=== PATIENT | female | born 1990 | race Two or more races ===

== ENCOUNTER 2017-05-29 10:08 | Emergency (ER) | payer MEDICAID ==
[~2017-05-29] VITALS: Ht 154.9 cm; Wt 85.7 kg
[2017-05-29 10:33] VITALS: BP 120/8
[2017-05-29] MEDS ORDERED: diphenhdrAMINE HCL 25 MG CAP PO ONE (11:00)
[2017-05-29] MEDS ORDERED: methylPREDNISolone SOD SUCC 125 MG/2 ML VL IM ONE (11:00)
== END 2017-05-29 11:42 | disposition home or self-care (01) ==
LOC: ER 10:08
DX: T78.40XA Allergy, unspecified, initial encounter (principal)
CPT/HCPCS: 96372; 99283; J2930

== ENCOUNTER 2018-01-11 12:47 | Emergency (ER) | payer MEDICAID ==
[~2018-01-11] VITALS: Ht 154.9 cm; Wt 78.9 kg
[2018-01-11 13:40] LABS: Urine WBC None Seen /hpf (0 - 5)
[2018-01-11 13:51] VITALS: BP 115/87
[2018-01-11 13:51] LABS: Basophils # (auto) 0.1 uL; Basophils % (auto) 0.5 % (0.0-2.0); Eosinophils # (auto) 0 uL; Eosinophils % (auto) 0.2 % (0.0-7.0); Hematocrit 46.9 % (36.0-46.0); Hemoglobin 16.2 g/dL (12.2-16.2); Lymphocytes # (auto) 2.7 uL; Lymphocytes % (auto) 24.8 % (10.0-50.0); Mean Corpuscular Hemoglobin 31.6 pg (28.0-32.0); Mean Corpuscular Hgb Conc. 34.6 g/dL (32.0-36.0); Mean Corpuscular Volume 91.3 fL (80.0-100.0); Monocytes # (auto) 1.2 uL; Monocytes % (auto) 11.1 % (0.0-12.0); Neutrophils % (auto) 63.4 % (37.0-80.0); Nucleated Red Blood Cells % 0.1 %; Platelet Count (auto) 259 10^3/uL (140-450); Red Blood Cells 5.13 10^6/uL (4.0-5.20); Red Cell Distribution Width 13.3 % (11.8-14.3); White Blood Cell 11.1 10^3/uL (4.4-10.8)
[2018-01-11 14:09] LABS: Albumin 4.2 g/dL (3.4-5.0); BUN/Creatinine Ratio 14.5; Bilirubin, Total 0.6 mg/dL (0.2-1.0); Calcium 9.5 mg/dL (8.5-10.1); Potassium 3.4 mmol/L (3.5-5.1); Total Protein 9.3 g/dL (6.4-8.2)
[2018-01-11 14:14] LABS: Urine Amorphous Crystal FEW /hpf (None Seen); Urine Bacteria NONE SEEN /hpf (None Seen); Urine Blood Negative /uL (Negative); Urine Mucus MODERATE (None Seen); Urine Specific Gravity 1.031 (1.001-1.035)
[2018-01-11] MEDS ORDERED: DICYCLOMINE HCL (10MG/ML) 2 ML AMPULE IM ONE (15:00)
== END 2018-01-11 15:28 | disposition home or self-care (01) ==
LOC: ER 12:48
DX: N39.0 Urinary tract infection, site not specified (principal); K76.0 Fatty (change of) liver, not elsewhere classified
CPT/HCPCS: 36415; 74176; 76705; 80053; 81001; 81025; 83690; 85025; 96372; 99285; J0500

== ENCOUNTER 2018-07-20 15:56 | Emergency (ER) | payer MEDICAID ==
[~2018-07-20] VITALS: Ht 154.9 cm; Wt 73.9 kg
[2018-07-20 19:06] VITALS: BP 135/69
[2018-07-20] MEDS ORDERED: HYDROcodone-ACET 10/325MG TAB PO ONE (19:45)
[2018-07-20] MEDS ORDERED: cefTRIAXone SOD 1,000 MG VL IM ONE (19:45)
[2018-07-20] MEDS ORDERED: LIDOCAINE 1% HCL (LOCAL ANESTH.) INJ 20ML MDV ONE (19:57)
[2018-07-20] MEDS ORDERED: LIDOCAINE 1% HCL (LOCAL ANESTH.) INJ 20ML MDV IJ ONE (20:15)
== END 2018-07-20 20:30 | disposition home or self-care (01) ==
LOC: ER 15:56
DX: S63.501A Unspecified sprain of right wrist, initial encounter (principal); S60.211A Contusion of right wrist, initial encounter; Z88.6 Allergy status to analgesic agent; Z91.040 Latex allergy status; W19.XXXA Unspecified fall, initial encounter; Y93.01 Activity, walking, marching and hiking; Y92.89 Other specified places as the place of occurrence of the external cause; Y99.8 Other external cause status
CPT/HCPCS: 29125; 73110; 81025; 96372; 99283; J0696; J2001

== ENCOUNTER 2019-01-10 12:07 | Emergency (ER) | payer MEDICAID ==
[~2019-01-10] VITALS: Ht 154.9 cm; Wt 68.9 kg
[2019-01-10 13:22] LABS: Basophils # (auto) 0 uL; Basophils % (auto) 0.4 % (0.0-2.0); Eosinophils # (auto) 0 uL; Eosinophils % (auto) 0.3 % (0.0-7.0); Hematocrit 39.9 % (36.0-46.0); Hemoglobin 13.7 g/dL (12.2-16.2); Lymphocytes # (auto) 1.9 uL; Lymphocytes % (auto) 26.8 % (10.0-50.0); Mean Corpuscular Hemoglobin 31.8 pg (28.0-32.0); Mean Corpuscular Hgb Conc. 34.2 g/dL (32.0-36.0); Mean Corpuscular Volume 93.1 fL (80.0-100.0); Monocytes # (auto) 0.4 uL; Monocytes % (auto) 6.2 % (0.0-12.0); Neutrophils # (auto) 4.7 uL; Neutrophils % (auto) 66.3 % (37.0-80.0); Nucleated Red Blood Cells % 0.1 %; Platelet Count (auto) 273 10^3/uL (140-450); Red Blood Cells 4.29 10^6/uL (4.0-5.20); Red Cell Distribution Width 12.5 % (11.8-14.3); White Blood Cell 7.1 10^3/uL (4.4-10.8)
[2019-01-10 13:26] LABS: Urine Bacteria FEW /hpf (None Seen); Urine Blood 2+ /uL (Negative); Urine Mucus FEW (None Seen); Urine Specific Gravity 1.024 (1.001-1.035); Urine WBC 45 /hpf (0 - 5)
[2019-01-10 13:39] LABS: Albumin 3.9 g/dL (3.4-5.0); BUN/Creatinine Ratio 13.3; Calcium 8.6 mg/dL (8.5-10.1); Potassium 3.4 mmol/L (3.5-5.1)
[2019-01-10 13:42] LABS: Bilirubin, Total 0.3 mg/dL (0.2-1.0); Total Protein 7.1 g/dL (6.4-8.2)
[2019-01-10 14:00] VITALS: BP 126/84
[2019-01-10] MEDS ORDERED: HYDROcodone-ACET 7.5/325MG TAB PO ONE (14:45)
== END 2019-01-10 15:09 | disposition home or self-care (01) ==
LOC: ER 12:19
DX: N93.9 Abnormal uterine and vaginal bleeding, unspecified (principal); Z91.040 Latex allergy status
CPT/HCPCS: 36415; 80053; 81001; 81025; 85025

== ENCOUNTER 2024-06-11 15:50 | Emergency (ER) | payer MEDICAID ==
[~2024-06-11] VITALS: Ht 157.5 cm; Wt 90.0 kg
[2024-06-11 16:46] VITALS: BP 130/77; PULSE 69; RESP 18; O2SAT 97
[2024-06-11] MEDS ORDERED: METOCLOPRAMIDE HCL 5MG/ml INJ 2ml VIAL IM ONE (17:30)
[2024-06-11] MEDS ORDERED: HYDROmorphone HCL 2 MG/ML VL/or syr IM ONE (17:30)
--- NOTE | 2024-06-11 17:37 | ED.PDOC ---
History of Present Illness HPI Comments 34 y/o F, with PMHX of migraines presents to the ED for CC of headache. Patient states, that she has been experiencing a migraine headache with associated symptoms of nausea and vomiting x1day. Patient relays, that she recently switched insurances and that it no longer covers her pervious Butalbital prescription. Patient comments on, currently taking Sumatriptan with no relief. Patient denies current nausea or vomiting, diarrhea, fatigue, weakness, or dizziness. No other associated symptom's, modifiers, recent injuries or sick contact at this time. Chief Complaint: Headache Time Seen by MD: 17:15 Primary Care Provider: KOKI Reviewed Notes: Nurses Notes, Medications, Allergies Allergies: Coded Allergies: Ibuprofen (Verified Allergy, Severe, 07/20/18) Latex (Verified Allergy, Severe, 07/20/18) NSAIDs (Verified Allergy, Severe, 07/20/18) No Known Drug Allergy (Verified Allergy, Unknown, 05/29/17) Information Source: Patient Mode of Arrival: Ambulatory Severity: Severe Timing: Days Duration: Since onset Prehospital treatment: Pain Meds Past Medical History PAST MEDICAL HISTORY: Denies Past Medical History (Other): Patient states history of migraine headaches Surgical History: Denies all surgeries ATOMIC SPECTROSCOPIST History: Other Family History Family History: Unknown Social History Smoker: Non-Smoker Alcohol: Denies ETOH Use Drugs: Denies Drug Use Lives In: Home Constitutional: denies: chills, diaphoresis, fatigue, fever, malaise, sweats, w eakness, others EENTM: denies: blurred vision, double vision, ear bleeding, ear discharge, ear drainage, ear pain, ear ringing, eye pain, eye redness, hearing loss, mouth pain, mouth swelling, nasal discharge, nose bleeding, nose congestion, nose pain, photophobia, tearing, throat pain, throat swelling, voice changes, others Respiratory: denies: cough, hemoptysis, orthopnea, SOB at rest, shortness of breath, SOB with excertion, stridor, wheezing, others Cardiovascular: denies: chest pain, dizzy spells, diaphoresis, Dyspnea on exertion, edema, irregular heart beat, left arm pain, lightheadedness, palpitations, PND, syncope, others Gastrointestinal: reports: nausea, vomiting; denies: abdomen distended, abdominal pain, blood streaked bowels, constipated, diarrhea, dysphagia, difficulty swallowing, hematemesis, melena, poor appetite, poor fluid intake, rectal bleeding, rectal pain, others Genitourinary: denies: abnormal vagina bleeding, burning, dyspareunia, dysuria, flank pain, frequency, hematuria, incontinence, pain, , vagina discharge, urgency, others Neurological: reports: headache; denies: dizziness, fainting, left sided numbness, left sided weakness, numbness, paresthesia, pre-existing deficit, right sided numbness, right sided weakness, seizure, speech problems, tingling, tremors, weakness, others Musculoskeletal: denies: back pain, gout, joint pain, joint swelling, muscle pain, muscle stiffness, neck pain, others Integumetry: denies: bruises, change in color, change in hair/nails, dryness, laceration, lesions, lumps, rash, wounds, others Allergic/Immunocompromised: denies: Difficulty Healing, Frequent Infections, Hives, Itching, others Hematologic/Lymphatic: denies: anemia, blood clots, easy bleeding, easy bruising, swollen glands, others Endocrine: denies: excessive hunger, excessive sweating, excessive thirst, excessive urination, flushing, intolerance to cold, intolerance to heat, unexplained weight gain, unexplained weight loss, others Psychiatric: denies: anxiety, bipolar disorder, depression, hopeless, panic disorder, schizophrenia, sleepless, suicidal, others All Other Systems: Reviewed and Negative Physical Exam General Appearance: Moderate Distress (Patient has a moderate distress at time of evaluation due to headache concerns.), Normal HEENT: Head (Unremarkable cranial evaluation. No signs of trauma. No skull depressions or deformities. Patient displays some mild photophobia.), Normal ENT Inspection, Pharynx Normal, TMs Normal Neck: Full Range of Motion, Non-Tender, Normal, Normal Inspection Respiratory: Chest Non-Tender, Lungs Clear, No Accessory Muscle Use, No Respiratory Distress, Normal Breath Sounds Cardiovascular: No Edema, No JVD, No Murmur, No Gallop, Normal Peripheral Pulses, Regular Rate/Rhythm Breast Exam: Deferred Gastrointestinal: No Organomegaly, Non Tender, No Pulsatile Mass, Normal Bowel Sounds, Soft Genitalia: Deferred Pelvic: Deferred Rectal: Deferred Extremities: No calf tenderness, Normal capillary refill, Normal inspection, Normal range of motion, Non-tender, No pedal edema Neurologic: Alert, combat control II-XII nml as Tested, No Motor Deficits, Normal Affect, Normal Mood, No Sensory Deficits Cerebellar Function: Normal Reflexes: Normal Skin: Dry, Normal Color, Warm Lymphatic: No Adenopathy Was a procedure done? Was a procedure done?: No Differential Dx Considerations may include: migraine headache, headache cluster headache, tension headache X-Ray, Labs, Meds, VS Vital Signs Date Time Temp Pulse Resp B/P (MAP) Pulse Ox O2 Delivery O2 Flow Rate FiO2 06/11/24 16:46 98.0 69 18 130/77 (94) 97 X-Ray, Labs, Meds, VS Comment Patient received medications from staff, but apparently eloped from the facility after receiving said medication. Time of 1ST Reevaluation: 19:33 Reevaluation 1ST: Improved Consultation: PCP, Neurology Patient Education/Counseling: Diagnosis, Treatment Family Education/Counseling: Diagnosis, Treatment, No Family Present Departure 1 Departure Time of Disposition: 19:34 Impression: Primary Impression: Headache Disposition: 07 LEFT AWOL/ELOPED Condition: Fair Discharged With: Self, Friend Critical Care Note Critical Care Time?: No Stability Stability form required: No Heart Score Heart Score: Heart Score Response (Comments) Value History N/A 0 EKG N/A 0 Age N/A 0 Risk Factors N/A 0 Troponin N/A 0 Total 0 I personally scribed for NATASHA LANDAVERDE PAC ([email or web address]) on 06/11/24 at 17:37. Electronically submitted by Renay Aviles ([email or web address]). NATASHA LANDAVERDE PAC Jun 11, 2024 17:37
== END 2024-06-11 18:48 | disposition left against medical advice (07) ==
LOC: ER 15:50
DX: R51.9 Headache, unspecified (principal); R11.2 Nausea with vomiting, unspecified; Z88.6 Allergy status to analgesic agent; Z91.040 Latex allergy status